=== PATIENT | male | born 1995 | race Caucasian/White ===

== ENCOUNTER 2019-11-02 07:08 | Emergency (ER) | payer OTHER ==
[~2019-11-02] VITALS: Ht 177 cm; Wt 105.0 kg
[2019-11-02 07:10] VITALS: BP 108/74
--- NOTE | 2019-11-02 07:20 | ED Upper Extremity ---
General Chief Complaint: Upper Extremity Stated Complaint: FINGER INJ History of Present Illness Date Seen by Provider: Nov 02, 2019 Time Seen by Provider: 07:20 Initial Comments 23-year-old male presents with crush injury to the distal aspect of his left middle finger. He does have a contusion with small amount of bleeding to the nailbed. There is no obvious laceration or swelling. He has full range of motion. He has full feeling. He is not up-to-date on his tetanus. He has no other injuries. Allergies and Home Medications Allergies Coded Allergies: No Known Drug Allergies (Unverified , 11/02/19) Patient Home Medication List Home Medication List Reviewed: Yes Review of Systems Constitutional: no symptoms reported EENTM: no symptoms reported Respiratory: no symptoms reported Cardiovascular: no symptoms reported Genitourinary: no symptoms reported Musculoskeletal: see HPI Skin: see HPI Psychiatric/Neurological: No Symptoms Reported Past Nvelxev-[id number]-[id number] Hx Past Med/Social Hx: Reviewed Nursing Past Med/Soc Hx Patient Social History Recent Foreign Travel: No Contact w/Someone Who Travel: No Physical Exam Vital Signs Vital Signs - First Documented 11/02/19 07:10 Temp 35.8 Pulse 73 Resp 18 B/P (MAP) 108/74 (85) Pulse Ox 100 Capillary Refill : Height, Weight, BMI Height: '" Weight: lbs. oz. kg; BMI Method: General Appearance: WD/WN, no apparent distress Cardiovascular: normal peripheral pulses, regular rate, rhythm Respiratory: normal breath sounds, no respiratory distress, no accessory muscle use Gastrointestinal: soft; No distended, No tenderness Shoulder: normal inspection Elbow/Forearm: normal inspection Wrist: Yes normal inspection Hand: normal ROM, Left, nail injury (contusion, no hematoma), swelling (minimal at distal tip of middle finger) Neurologic/Psychiatric: alert, normal mood/affect, oriented x 3 Skin: ecchymosis (mild distal tip left middle finger) Progress/Results/Core Measures Results/Orders My Orders Orders - OKEEFE,ARTHUR L DO Dipht,Pertuss(Acell),Tet Adult (Boostrix (11/02/19 07:30) Vital Signs/I&O 11/02/19 07:10 Temp 35.8 Pulse 73 Resp 18 B/P (MAP) 108/74 (85) Pulse Ox 100 Departure Impression Primary Impression: Contusion of left middle finger with damage to nail, initial encounter Disposition: HOME, SELF-CARE Condition: Stable Departure-Patient Inst. Patient Instructions: Bruising Under the Nail, Contusion (DC) Add. Discharge Instructions: Ice to affected area as needed Tylenol or ibuprofen as needed for pain All discharge instructions reviewed with patient and/or family. Voiced understanding. ARTHUR OKEEFE DO Nov 02, 2019 07:20
[2019-11-02] MEDS ORDERED: TETANUS,DIPTH,PERTUSS P/F (BOOSTRIX) 0.5 ML VIAL IM ONE (07:30)
== END 2019-11-02 07:53 | disposition home or self-care (01) ==
LOC: ER 07:09
DX: S60.132A Contusion of left middle finger with damage to nail, initial encounter (principal); Z23 Encounter for immunization; X58.XXXA Exposure to other specified factors, initial encounter
CPT/HCPCS: 90715; 99284